=== PATIENT | male | born 1960 | race Caucasian/White ===

== ENCOUNTER 2017-06-24 09:07 | Day surgery (SDC) | payer OTHER ==
[2017-06-24] MEDS ORDERED: KETOROLAC 30 MG/ML VIAL IVP ONE (09:08)
[2017-06-24] MEDS ORDERED: METOCLOPRAMIDE HCL 10 MG/2 ML VIAL IVP ONE (09:08)
[2017-06-24] MEDS ORDERED: SEVOFLURANE 250 ML INH ONE (09:08)
[2017-06-24] MEDS ORDERED: LIDOCAINE 2% MDV (20MG/ML) 20ML VIAL IV ONE (09:08)
[2017-06-24] MEDS ORDERED: MIDAZOLAM HCL 2MG/2ML VIAL IV ONE (09:08)
[2017-06-24] MEDS ORDERED: ONDANSETRON HCL IV 4 MG/2 ML VIAL IVP ONE (09:08)
[2017-06-24] MEDS ORDERED: PROPOFOL 10 MG/ML VIAL IV ONE (09:08)
[2017-06-24] MEDS ORDERED: FENTANYL PF 100MCG/2ML VIAL IV ONE (09:08)
--- NOTE | 2017-06-24 14:50 | Operative Note ---
DATE OF SURGERY: 06/24/2017 Surgeon: Zander Roland DO PREOPERATIVE DIAGNOSIS: Trigger finger of the left middle finger. POSTOPERATIVE DIAGNOSIS: Trigger finger of the left middle finger. OPERATION: Tenotomy A1 chas left middle finger. DESCRIPTION OF PROCEDURE: This 56-year-old male was taken to the operating room and placed in the supine position on the operating room table where general anesthesia was induced. The left upper extremity was elevated. It was prepped with Hibiclens and draped in the usual sterile fashion. Exsanguinated and the tourniquet inflated to 250 mmHg. A palmar incision was utilized with a longitudinal incision made over the head of the 3rd metacarpal identifying the A1 chas without difficulty. We dissected down through the skin and subcutaneous tissue to the A1 chas and it was divided from its proximal to its distal margin under direction vision. Disruption of the sublimis tendon was present with some fraying of that tendon, and a few fibers appeared to be disconnected but they were not loose and they were not surgically removed. The finger flexed and extended then without any evidence of impingement and there was increased tenosynovial fluid as well. The wound was irrigated with lactated Ringer's solution and the tendon was seen to be free with no catching or locking. The wound was closed with interrupted 6-0 nylon suture. Sterile dressings were applied and the patient taken to the recovery room in satisfactory condition. GROSS PATHOLOGY: This patient demonstrated evidence of trigger finger with bulbous appearance of the tendon and enlargement of the sublimis tendon at the proximal edge of the A1 chas. Some fraying of the tendon fibers was present as described. CC: [facility] Shen DO [facility]
== END 2017-06-24 11:30 | disposition home or self-care (01) ==
LOC: SUR 09:07
PROVIDERS: ATTEND Orthopaedic Surgery
DX: M65.332 Trigger finger, left middle finger (principal); E78.00 Pure hypercholesterolemia, unspecified
CPT/HCPCS: 26055; 01810; J1885; J2405; J3010; J2765

== ENCOUNTER 2017-07-01 06:08 | Day surgery (SDC) | payer OTHER ==
[~2017-07-01 06:08] MED LIST: ACETAMINOPHEN 1,000 MG/100 ML BTL IV ONE
[2017-07-01] MEDS ORDERED: LIDOCAINE 2% MDV (20MG/ML) 20ML VIAL IV ONE (06:09)
[2017-07-01] MEDS ORDERED: KETOROLAC 30 MG/ML VIAL IVP ONE (06:09)
[2017-07-01] MEDS ORDERED: SEVOFLURANE 250 ML INH ONE (06:09)
[2017-07-01] MEDS ORDERED: ONDANSETRON HCL IV 4 MG/2 ML VIAL IVP ONE (06:09)
[2017-07-01] MEDS ORDERED: FENTANYL PF 100MCG/2ML VIAL IV ONE (06:09)
[2017-07-01] MEDS ORDERED: BUPIVACAINE 0.25% W/EPI MPF 30ML VIAL IVP ONE (06:09)
[2017-07-01] MEDS ORDERED: MIDAZOLAM HCL 2MG/2ML VIAL IV ONE (06:09)
[2017-07-01] MEDS ORDERED: PROPOFOL 10 MG/ML VIAL IV ONE (06:09)
--- NOTE | 2017-07-02 12:31 | Operative Note ---
DATE OF SURGERY: 07/01/2017 Surgeon: Zander Roland DO PREOPERATIVE DIAGNOSES: 1. Chondromalacia of the right knee. 2. Possible torn medial meniscus, right knee. POSTOPERATIVE DIAGNOSES: 1. Torn medial and lateral meniscus, right knee. 2. Chondromalacia of the patella, medial femoral condyle, and lateral plateau, right knee. OPERATION: 1. Arthroscopic partial medial and lateral meniscectomy, right knee. 2. Arthroscopic chondroplasty of the patella, right knee. DESCRIPTION OF PROCEDURE: This 56-year-old male was taken to the operating room, placed in the supine position on the operating room table where general anesthetic was administered. The right lower extremity was elevated, exsanguinated, and tourniquet inflated to 300 mmHg. Arthroscopic knee astudillo applied. Right knee prepped with Hibiclens and draped in the usual sterile fashion. An inferolateral portal was established for the 4 mm arthroscope and initial evaluation of the joint demonstrated normal appearance of the suprapatellar pouch. The patient demonstrated grade 2 chondromalacia of the entire articulating surface of the patella with loose fragments of articular cartilage. Through an inferomedial portal, chondroplasty was performed to stabilize the articular cartilage there. The trochlea appeared essentially normal. The medial and lateral gutters were examined and found to be normal. The medial compartment was entered and grade 2 chondromalacia of the medial femoral condyle was present but it was not grossly unstable and it was not further disturbed. The patient demonstrated a radial tear of the medial meniscus of the posterior horn at about the 11-o'clock position but it did not involve the root. This tear extended back to very near the meniscal synovial junction. We used the basket forceps and rotating shaver to smooth, trim, and balance the meniscus after resecting back to the apex and then tapering in each direction. It was re-probed and confirmed to be stable. The intracondylar notch was examined and found to be normal. The lateral compartment was entered and a degenerative tear of the posterior horn of the lateral meniscus was present with small radial tears being present at about the 9-o'clock position. A degenerative tear was at approximately the 1-o'clock position. Utilizing the basket forceps, we resected the unstable area of the degenerative tear which was about 4 mm deep and then tapered to a smooth contoured surface removing the small radial tears of the lateral meniscus as well. The articular cartilage of the lateral tibial plateau demonstrated some mild grade 2 changes and there was considerable softening of the articular cartilage there but it was essentially not further disturbed. After re-probing of the lateral meniscus, we felt that this was stable and the joint was copiously irrigated and suctioned and the instruments were removed. The portals were infiltrated with 0.25% Marcaine with epinephrine. Sterile dressings applied. Tourniquet and knee astudillo released and the patient taken to the recovery room in satisfactory condition. GROSS PATHOLOGY: The patient demonstrated tears of both the medial and lateral meniscus as described above with grade 2 chondromalacia being noted on the patella, lateral tibial plateau, and medial femoral condyle as described. SANDHYA
== END 2017-07-01 08:45 | disposition home or self-care (01) ==
LOC: SUR 06:08
PROVIDERS: ATTEND Orthopaedic Surgery
DX: S83.241A Other tear of medial meniscus, current injury, right knee, initial encounter (principal); M22.41 Chondromalacia patellae, right knee; M94.261 Chondromalacia, right knee; E78.00 Pure hypercholesterolemia, unspecified
CPT/HCPCS: 29880; 29879; 01400; J1885; J2405; J3010

== ENCOUNTER 2018-08-25 15:18 | Emergency (ER) | payer BC, OTHER ==
[2018-08-25] MEDS ORDERED: Diph,Pert(Acell),Tet Vac 0.5 ML SYR IM ONE (15:42)
--- NOTE | 2018-08-25 15:46 | Emergency Department Record ---
History of Present Illness - General Chief Complaint: Laceration(s) Stated Complaint: LACERATION Time Seen by Provider: 08/25/18 15:26 Source: Patient Mode of Arrival: Ambulatory Limitations: No limitations - History of Present Illness Initial Commments: The patient is here due to cutting his L 2nd finger about an hour ago. He was at [employer] and a piece of sheet metal came down and crushed his L 2nd finger. It did lacerate the distal finger and measures 3 cm.. The patient denies any numbness or weakness. His Td is >5 yrs. Onset/Timin -: Hour(s) Place: Other Context: Accidental Associated Symptoms: None Treatments Prior to Arrival: Bandage - Related Data Hx Tetanus Toxoid Vaccination: Yes Home Medications Medication Instructions Recorded Confirmed Last Taken RX: Furosemide [Lasix] 20 mg PO DAILY 08/25/18 08/25/18 Unknown RX: Potassium Chloride 10 meq PO DAILY 08/25/18 08/25/18 Unknown Previous Rx's Medication Instructions Recorded Cephalexin [Keflex] 500 mg PO QID #28 cap 08/25/18 Allergies Allergy/AdvReac Type Severity Reaction Status Date / Time No Known Drug Allergies Allergy Verified 12/27/14 13:58 Travel Screening - Travel/Exposure Within Last 30 Days Have you traveled within the last 30 days?: No Review of Systems Constitutional: Denies: Chills, Fever Past Medical History - SOCIAL HISTORY Smoking Status: Never smoker - RESPIRATORY Hx Respiratory Disorders: Yes Hx Sleep Apnea: Yes Hx of CPAP: No (Doesn't use it) - CARDIOVASCULAR Hx Cardio Disorders: Yes Hx Deep Vein Thrombosis: Yes (2012 after injury) Comment:: DVT left leg/hypercholesteremia - NEURO Hx Neuro Disorders: Yes Hx Headaches: Yes (from neck issues) Comment:: major concussion accident 2012 - GI Hx GI Disorders: Yes Hx Reflux: Yes (history of, no meds) - Hx Genitourinary Disorders: No - ENDOCRINE Hx Diabetes: No (runs in the family) Hx Thyroid Disease: No - MUSCULOSKELETAL Hx Musculoskeletal Disorders: Yes Hx Arthritis: Yes (knees, hands) Hx Back Injury: Yes (cervical) - PSYCH Hx Psych Problems: No Hx Depression: (denies) - HEMATOLOGY/ONCOLOGY Hx Hematology/Oncology Disorders: No Family Medical History Any Significant Family History?: Yes Hx Diabetes: Brother/Sister, Grandparents Hx Heart Disease: Father *Heart Comment: 4 way bypass, ([place] father) Hx HTN: Father, Mother Physical Exam - General General Appearance: Alert, Oriented x3, Cooperative - Head Head exam: Atraumatic, Normocephalic - Extremities Extremities exam: Tenderness (over the distal 2nd finger.), Other (The L 2nd finger DIP flexion and extension are normal. The patient's 2nd finger sensation is normal.). negative: Normal inspection (There is a 3 cm lac to the distal L 2nd finger that involves the palmar, radial and partailly the dorsal surfaces. It appears to be a flap type injury.) Image of Finger Tip: 1 - 3 cm flap lac. Course Vital Signs 08/25/18 15:20 Temperature 98.1 F Pulse Rate 67 Respiratory 18 Rate Blood Pressure 137/81 Pulse Ox 97 - Reevaluation(s) Reevaluation #1: Procedure note: The L 2nd finger was anesth. using a 50:50 mixture of lido 1% and Sensoricaine in a digital block technique. The lac was prepped with betadine and lavaged with sterile saline. the proximal edges of the lac flap was minimally debrided. The lac was explored and was not down to bone or tendon. It was closed with 8 4.0 nylon sutures. 08/25/18 16:20 Medical Decision Making - Data Complexity MDM Data: X-Ray Ordered and/or Reviewed - Radiology Data Radiology results: Report reviewed (L 2nd finger: neg.) Disposition Disposition: Discharge Clinical Impression: Laceration of finger Qualifiers: Encounter type: initial encounter Finger: index finger Damage to nail status: without damage Foreign body presence: without foreign body Laterality: left Q ualified Code(s): S61.211A - Laceration without foreign body of left index finger without damage to nail, initial encounter Disposition: Home, Self-Care Condition: (2) Stable Instructions: Laceration (ED) Additional Instructions: Keep dry for 2 days then no soaking or swimming. Take Keflex as directed and use Tylenol or Motrin for pain. Please watch and return for signs of infection and have the sutures removed in 10 days. Prescriptions: Cephalexin [Keflex] 500 mg PO QID #28 cap Forms: Patient Portal Access Time of Disposition: 16:24 Quality - Quality Measures Quality Measures: N/A - Blood Pressure Screening View Details: Yes Does Patient Have Any of the Following: No Blood Pressure Classification: Pre-Hypertensive BP Reading Systolic Measurement: 137 Diastolic Measurement: 81 Screening for High Blood Pressure: < Pre-Hypertensive BP, F/U Documented > [G8950] Pre-Hypertensive Follow-up Interventions: Referral to alternative/primary care provider.
--- NOTE | 2018-08-26 22:22 | RADIOLOGY REPORT ---
EXAM: FINGER(S), LEFT HISTORY: PATIENT LACERATED LEFT INDEX FINGER WITH CORRUGATED SHEET METAL. TECHNIQUE: Three views left index finger. COMPARISON: None. ENCOUNTER: Initial. FINDINGS: There is soft tissue deformity along the radial and palmar aspect of the left index finger at about the level of the distal aspect of the middle phalanx, presumably corresponding to the site of laceration. There is some diffuse soft tissue swelling involving the index finger as well. No definite underlying fracture identified. Mild degenerative arthritis at the DIP joint and also second MCP joint. IMPRESSION: 1. SOFT TISSUE DEFORMITY CONSISTENT WITH LACERATION. DIFFUSE SOFT TISSUE SWELLING WELL. 2. NO DEFINITE FRACTURE OF THE LEFT INDEX FINGER IDENTIFIED. JOB NUMBER: [id number] MTDD
== END 2018-08-25 17:21 | disposition home or self-care (01) ==
LOC: ER 15:18
DX: S61.211A Laceration without foreign body of left index finger without damage to nail, initial encounter (principal); W23.1XXA Caught, crushed, jammed, or pinched between stationary objects, initial encounter; Y92.512 Supermarket, store or market as the place of occurrence of the external cause
CPT/HCPCS: 12002; 73140; 90715; 96372; 99283

== ENCOUNTER 2018-09-06 20:10 | Emergency (ER) | payer BC ==
--- NOTE | 2018-09-06 20:18 | Emergency Department Record ---
History of Present Illness - General Chief Complaint: Suture removal Stated Complaint: SUTURE REMOVAL FINGER Time Seen by Provider: 09/06/18 20:12 Source: Patient Mode of arrival: Ambulatory Limitations: No limitations - History of Present Illness Initial Comments: 57 yo male presents to ED for evaluation of suture removal following laceration repair to the left index finger 12 days ago. Patient denies complications following repair, denies redness, drainage from the wound, fevers, or swelling. Patient denies adverse symptoms following repair. MD Complaint: Suture/staple removal Onset/Timin -: Days(s) Initial Visit For: Laceration Returns Today for: Staple/stitch removal Symptoms Since Prior Visit: No new symptoms Associated Symptoms: None - Related Data Previous Rx's Medication Instructions Recorded Cephalexin [Keflex] 500 mg PO QID #28 cap 08/25/18 Allergies Allergy/AdvReac Type Severity Reaction Status Date / Time No Known Drug Allergies Allergy Verified 12/27/14 13:58 Travel Screening - Travel/Exposure Within Last 30 Days Have you traveled within the last 30 days?: No - Travel/Exposure Within Last Year Have you traveled outside the [place] in the last year?: No - Additonal Travel Details Have you been exposed to anyone with a communicable illness?: No - Travel Symptoms Symptom Screening: None Review of Systems Constitutional: Denies: Chills, Fever, Malaise, Night sweats Eyes: Denies: Eye discharge, Eye pain ENT: Denies: Congestion, Ear pain, Epistaxis Respiratory: Denies: Cough, Dyspnea Cardiovascular: Denies: Chest pain, Dyspnea on exertion Endocrine: Denies: Fatigue, Heat or cold intolerance Gastrointestinal: Denies: Abdominal pain, Nausea, Vomiting Genitourinary: Denies: Incontinence, Retention Musculoskeletal: Denies: Arthralgia, Back pain Skin: Reports: Other (Laceration repair left index finger). Denies: Bruising, Change in color Neurological: Denies: Abnormal gait, Confusion, Seizure Psychiatric: Denies: Anxiety Hematological/Lymphatic: Denies: Anemia, Blood Clots Past Medical History - SOCIAL HISTORY Smoking Status: Never smoker Alcohol Use: None Drug Use: None - RESPIRATORY Hx Respiratory Disorders: Yes Hx Sleep Apnea: Yes Hx of CPAP: No (Doesn't use it) - CARDIOVASCULAR Hx Cardio Disorders: Yes Hx Deep Vein Thrombosis: Yes (2011 after injury) Comment:: DVT left leg/hypercholesteremia - NEURO Hx Neuro Disorders: Yes Hx Headaches: Yes (from neck issues) Comment:: major concussion accident 2012 - GI Hx GI Disorders: Yes Hx Reflux: Yes (history of, no meds) - Hx Genitourinary Disorders: No - ENDOCRINE Hx Diabetes: No (runs in the family) Hx Thyroid Disease: No - MUSCULOSKELETAL Hx Musculoskeletal Disorders: Yes Hx Arthritis: Yes (knees, hands) Hx Back Injury: Yes (cervical) - PSYCH Hx Psych Problems: No Hx Depression: (denies) - HEMATOLOGY/ONCOLOGY Hx Hematology/Oncology Disorders: No Family Medical History Any Significant Family History?: Yes Hx Diabetes: Brother/Sister, Grandparents Hx Heart Disease: Father *Heart Comment: 4 way bypass, ([place] father) Hx HTN: Father, Mother Physical Exam - General General Appearance: Alert, Oriented x3, Cooperative, No acute distress Limitations: No limitations - Head Head exam: Atraumatic, Normocephalic, Normal inspection Head exam detail: negative: Abrasion, Contusion, Llanes's sign, General tenderness, Hematoma, Laceration - Eye Eye exam: Normal appearance. negative: Conjunctival injection, Periorbital swelling, Periorbital tenderness, Scleral icterus - ENT Ear exam: negative: Auricular hematoma, Auricular trauma Nasal Exam: negative: Active bleeding, Discharge, Dried blood, Foreign body Mouth exam: negative: Drooling, Laceration, Muffled voice, Tongue elevation - Neck Neck exam: Normal inspection. negative: Meningismus, Tenderness - Respiratory Respiratory exam: Normal lung sounds bilaterally. negative: Rales, Respiratory distress, Rhonchi, Stridor - Cardiovascular Cardiovascular Exam: Regular rate, Normal rhythm, Normal heart sounds - GI/Abdominal GI/Abdominal exam: Soft. negative: Rebound, Rigid, Tenderness - Rectal Rectal exam: Deferred - exam: Deferred - Extremities Extremities exam: Other (Laceration repair to the left index fingers with [address], laceration appears well-healed without evidence for infection.). negative: Calf tenderness, Pedal edema, Tenderness - Back Back exam: Denies: CVA tenderness (R), CVA tenderness (L) - Neurological Neurological exam: Alert, Normal gait, Oriented X3 - Psychiatric Psychiatric exam: Normal affect, Normal mood - Skin Skin exam: Normal color. negative: Abrasion Type of lesion: negative: abrasion Course Vital Signs 09/06/18 20:13 Temperature 98.3 F Pulse Rate 69 Respiratory 20 Rate Blood Pressure 140/86 Pulse Ox 98 - Reevaluation(s) Reevaluation #1: 09/06/18 20:22 Procedure Note: (8) sutures were removed without complication, steri strips applied to the distal aspect of the wound to allow 2-3 more days of healing to continue. Patient appears stable for discharge at this time. Disposition Disposition: Discharge Clinical Impression: Visit for suture removal Disposition: Home, Self-Care Condition: (2) Stable Instructions: Stitches Removal (ED) Additional Instructions: Return to ED if your symptoms worsen or if you have any concerns. Follow-up with your family doctor in 1 week as directed. Forms: Patient Portal Access Time of Disposition: 20:18 Quality - Quality Measures Quality Measures: N/A - Blood Pressure Screening Does Patient Have Any of the Following: No Blood Pressure Classification: Pre-Hypertensive BP Reading Systolic Measurement: 140 Diastolic Measurement: 86 Screening for High Blood Pressure: < Pre-Hypertensive BP, F/U Documented > [G8950] Pre-Hypertensive Follow-up Interventions: Referral to alternative/primary care provider.
== END 2018-09-06 20:30 | disposition home or self-care (01) ==
LOC: ER 20:10
DX: Z48.02 Encounter for removal of sutures (principal)

== ENCOUNTER 2019-01-01 15:44 | Emergency (ER) | payer BC ==
[2019-01-01] MEDS ORDERED: ALBUTEROL SULFATE (0.083%) 2.5 MG/3 ML NEB INH ONE (16:02)
--- NOTE | 2019-01-01 16:05 | Emergency Department Record ---
History of Present Illness - General Chief Complaint: Chest Pain Stated Complaint: CHEST CVONGESTIONB,COUGH Time Seen by Provider: 01/01/19 15:53 Source: Patient Mode of Arrival: Ambulatory Limitations: No limitations - History of Present Illness Initial Comments: The patient is here due to a one week hx of cough and congestion with wheezing at times. He denies any chest pain, sputum production, fever, chills, or AU. The patient did see his PCP 6 days ago and was placed on Amox. but he does not feel better. The patients's is a stem cell transplant recipient so he is very concerned about getting ill. Onset/Timin -: Week(s) Severity: Mild, Moderate Severity scale (1-10): 2 Quality: Aching - Related Data Previous Rx's Medication Instructions Recorded Cephalexin [Keflex] 500 mg PO QID #28 cap 08/25/18 Albuterol Sulfate [Proair Hfa] 2 puff IH QID PRN #1 inhaler 01/01/19 Azithromycin [Zithromax] 250 mg PO ASDIR #4 tab 01/01/19 Allergies Allergy/AdvReac Type Severity Reaction Status Date / Time No Known Drug Allergies Allergy Verified 01/01/19 15:57 Travel Screening - Travel/Exposure Within Last 30 Days Have you traveled within the last 30 days?: No - Travel/Exposure Within Last Year Have you traveled outside the [place] in the last year?: No - Additonal Travel Details Have you been exposed to anyone with a communicable illness?: No - Travel Symptoms Symptom Screening: None Review of Systems Constitutional: Denies: Chills, Fever Eyes: Denies: Eye discharge ENT: Reports: Congestion Respiratory: Reports: Cough, Wheezes. Denies: Dyspnea, Hemoptysis Cardiovascular: Denies: Arrhythmia, Chest pain Endocrine: Denies: Fatigue Gastrointestinal: Denies: Diarrhea Genitourinary: Denies: Dysuria Musculoskeletal: Denies: Arthralgia Skin: Denies: Bruising Past Medical History - SOCIAL HISTORY Smoking Status: Never smoker Alcohol Use: None, Rare Drug Use: None - RESPIRATORY Hx Respiratory Disorders: Yes Hx Bronchitis: Yes Hx Sleep Apnea: Yes Hx of CPAP: No (Doesn't use it) - CARDIOVASCULAR Hx Cardio Disorders: Yes Hx Deep Vein Thrombosis: Yes (2012 after injury) Comment:: DVT left leg/hypercholesteremia - NEURO Hx Neuro Disorders: Yes Hx Headaches: Yes (from neck issues) Comment:: major concussion accident 2012 - GI Hx GI Disorders: Yes Hx Reflux: Yes (history of, no meds) - Hx Genitourinary Disorders: No - ENDOCRINE Hx Diabetes: No (runs in the family) Hx Thyroid Disease: No - MUSCULOSKELETAL Hx Musculoskeletal Disorders: Yes Hx Arthritis: Yes (knees, hands) Hx Back Injury: Yes (cervical) - PSYCH Hx Psych Problems: No Hx Depression: (denies) - HEMATOLOGY/ONCOLOGY Hx Hematology/Oncology Disorders: No Family Medical History Any Significant Family History?: Yes Hx Diabetes: Brother/Sister, Grandparents Hx Heart Disease: Father *Heart Comment: 4 way bypass, ([place] father) Hx HTN: Father, Mother Physical Exam - General General Appearance: Alert, Oriented x3, Cooperative, No acute distress (The patient is in no distress and speaking in full sentences.) - Head Head exam: Atraumatic, Normocephalic - Eye Eye exam: Normal appearance, PERRL - ENT Throat exam: Normal inspection. negative: Tonsillar erythema, Tonsillar exudate - Neck Neck exam: Normal inspection, Full ROM. negative: Tenderness - Respiratory Respiratory exam: Wheezes (few in the lower lobes.). negative: Normal lung blanquita nds bilaterally, Accessory muscle use, Chest wall tenderness, Decreased breath sounds, Prolonged expiratory, Respiratory distress, Rhonchi, Stridor - Cardiovascular Cardiovascular Exam: Regular rate, Normal rhythm, Normal heart sounds - GI/Abdominal GI/Abdominal exam: Soft, Normal bowel sounds. negative: Tenderness Course Vital Signs 01/01/19 15:49 Temperature 98.2 F Pulse Rate 71 Respiratory 16 Rate Blood Pressure 123/84 Pulse Ox 95 - Reevaluation(s) Reevaluation #1: The patient is doing a lot better at this time. He feels like his lungs are more open and less congested and he is able to take deeper breaths. I did discuss the CXR that does demonstrate a mild LLL infiltrate. His Abx will be changed to Zithromax and he is to see his PCP later this week for recheck. 01/01/19 17:00 Medical Decision Making - Data Complexity MDM Data: Labs Ordered and/or Reviewed, X-Ray Ordered and/or Reviewed, EKG Ordered and/or Reviewed - Lab Data Result diagrams: 01/01/19 16:30 01/01/19 16:30 - EKG Data -: EKG Interpreted by Me EKG: No Acute Changes, Normal EKG - Radiology Data Radiology results: Report reviewed (CXR: Increased interstitial inflammatory markings LLL consistent with mild pneumonia.) Disposition Disposition: Discharge (pneumonia) Clinical Impression: Pneumonia Qualifiers: Pneumonia type: due to unspecified organism Laterality: left Lung location: unspecified part of lung Qualified Code(s): J18.9 - Pneumonia, unspecified organism Disposition: Home, Self-Care Condition: (2) Stable Instructions: Community Acquired Pneumonia (ED) Additional Instructions: Please use Tylenol or Motrin for fever and continue the Zithromax tomorrow as directed. Please use the inhaller as directed and see your family doctor this week for recheck. Return to the ER for any worsening symptoms. Prescriptions: Albuterol Sulfate [Proair Hfa] 2 puff IH QID PRN #1 inhaler PRN Reason: Cough And Difficulty Breathing Azithromycin [Zithromax] 250 mg PO ASDIR #4 tab Forms: Patient Portal Access Time of Disposition: 17:05 Quality - Quality Measures Quality Measures: N/A - Blood Pressure Screening View Details: Yes Does Patient Have Any of the Following: No Blood Pressure Classification: Pre-Hypertensive BP Reading Systolic Measurement: 123 Diastolic Measurement: 84 Screening for High Blood Pressure: < Pre-Hypertensive BP, F/U Documented > [G8950] Pre-Hypertensive Follow-up Interventions: Referral to alternative/primary care provider.
[2019-01-01 16:37] LABS: BASO % 0.4 % (0-6); EOS % 3.5 % (0-6); GRAN % 43.2 % (47-80); HEMATOCRIT 41.6 % (42.0-52.0); HEMOGLOBIN 13.9 gm/dl (14.0-18.0); LYMPH % 39.9 % (16-45); MEAN CELL VOLUME 95.2 fl (81-97); MEAN CORPUSCULAR HEMOGLOBIN 31.8 pg (27-33); MEAN CORPUSCULAR HGB CONC 33.4 g/dl (32-36); MEAN PLATELET VOLUME 8.8 fl (7.4-10.4); PLATELET COUNT 235 K/uL (130-400); RED BLOOD COUNT 4.37 M/uL (4.40-5.70); WHITE BLOOD COUNT W/O DIFF 4.9 K/uL (4.2-12.2)
--- NOTE | 2019-01-01 16:43 | RADIOLOGY REPORT ---
EXAMINATION: Two View Chest Radiographs EXAM DATE: 01/01/2019 4:25 PM TECHNIQUE: Frontal and lateral views INDICATION: Acute cough COMPARISON: 04/16/2016 FINDINGS: 2 views. Prominent interstitial lung markings in the left mid and lower lung zones. The right lung is clear. No visible pneumothorax or pleural fluid. Normal heart size. Cervical spine fusion hardware n oted. IMPRESSION: Mild inflammatory infiltrates in the left lung base. Dictated by: Hay Van MD on 01/01/2019 4:38 PM. .
[2019-01-01 16:45] LABS: BLOOD UREA NITROGEN 15 mg/dL (8-23); CREATININE 1.1 mg/dL (0.7-1.2); EST GLOMERULAR FILTRATION RATE > 60 mL/min
[2019-01-01 16:46] LABS: TOTAL PROTEIN 6.9 g/dL (6.6-8.7)
[2019-01-01 16:48] LABS: GLUCOSE,RANDOM 129 mg/dL (74-109)
[2019-01-01 16:50] LABS: ALT/SGPT 28 U/L (<41)
[2019-01-01 16:51] LABS: ALB/GLOB RATIO 1.8 (1.1-1.8); ALBUMIN 4.4 g/dL (4.0-5.0); ALKALINE PHOSPHATASE 83 U/L (40-129); AST/SGOT 27 U/L (10.0-50.0)
[2019-01-01] MEDS ORDERED: AZITHROMYCIN 500 MG TABLET PO ONE (16:52)
== END 2019-01-01 17:09 | disposition home or self-care (01) ==
LOC: ER 15:44
DX: J18.9 Pneumonia, unspecified organism (principal)
CPT/HCPCS: 71046; 80053; 84484; 85025; 93005; 93010; 94640; 99284; J7613